=== PATIENT | female | born 2000 | race Caucasian/White ===

== ENCOUNTER 2023-01-13 11:45 | Emergency (ER) | payer MEDICAID, SELFPAY ==
[2023-01-13 11:49] VITALS: BP 113/63; PULSE 51; RESP 16; TEMP 37.1; O2SAT 98; BMI 16.5
--- NOTE | 2023-01-13 12:23 | ED.GENADUL1 ---
HPI - General Adult General Chief complaint: Headache Stated complaint: HEADACHE Time Seen by Provider: 01/13/23 11:56 Source: patient Mode of arrival: Wheelchair History of Present Illness HPI narrative: Patient presents with right sided frontal headache that began early this morning. She has all the symptoms typically associated with her headaches - visual aura, photophobia, blurred vision, nausea, general achiness. She told me that she is from [place] and was evaluated there and diagnosed with hydrocephalus after getting a lot of blood tests and an MRI last spring. She was supposed to see neurosurgery but didnt. She moved to [place] but went to [facility] in [place] the end of October for similar symptoms, had a repeat head CT and was told it hadn't changed from what her tests showed in [place]. Nothing taken at home for the pain. She said that she has a neurologist in [place] and her PCP is in [place] but she has not been prescribed anything to take at home for her headaches. She has not been to [facility] previously for this or since the diagnosis this summer. Related Data Previous Rx's Medication Instructions Recorded nabumetone 750 mg tablet 750 mg PO BID PRN pain/headache 01/13/23 #20 tabs ondansetron 4 mg disintegrating 4 mg PO Q6H PRN headache #20 tabs 01/13/23 tablet Allergies Allergy/AdvReac Type Severity Reaction Status Date / Time No Known Drug Allergies Allergy Verified 01/13/23 11:56 Exam Narrative Exam Narrative: Nurses notes and vital signs reviewed and patient is not hypoxic. afebrile General: Well-appearing and in no apparent distress. Skin: Warm, dry, no pallor noted. No rash. Head: Normocephalic, atraumatic. Neck: Supple, non-tender. no cervical lymphadenopathy. No meningismus. Eye: Pupils are equal, round and EOMI. No scleral icterus. no nystagmus Ears, Nose, Mouth, and Throat: TM are clear, no nasal mucosal hypertrophy. Oral mucosa is moist, no posterior oropharynx erythema, uvula is mid-line Cardiovascular: Regular Rate and Rhythm without murmur, gallop or rub. Respiratory: No accessory muscle use or respiratory distress. Lungs are clear to auscultation, no wheezing, rales or rhonchi Musculoskeletal: normal ROM Neurological: A&O x4. No cranial nerve dysfunction observed. No truncal ataxia. Moves all extremities. Sensation intact. Psychiatric: Cooperative and interactive. Normal mood and affect. Constitutional Vital Signs, click to edit/add: Last Vital Signs Temp 98.8 F 01/13/23 11:49 Pulse 55 L 01/13/23 13:09 Resp 18 01/13/23 13:09 BP 92/55 01/13/23 13:09 Pulse Ox 100 01/13/23 13:09 O2 Del Method Room Air 01/13/23 13:09 Course Vital Signs Vital signs: Vital Signs Temperature 98.8 F 01/13/23 11:49 Pulse Rate 51 L 01/13/23 11:49 Respiratory Rate 16 01/13/23 11:49 Blood Pressure 113/63 01/13/23 11:49 Pulse Oximetry 98 01/13/23 11:49 Oxygen Delivery Method Room Air 01/13/23 11:49 Temperature 98.8 F 01/13/23 11:49 Pulse Rate 55 L 01/13/23 13:09 Respiratory Rate 18 01/13/23 13:09 Blood Pressure 92/55 01/13/23 13:09 Pulse Oximetry 100 01/13/23 13:09 Oxygen Delivery Method Room Air 01/13/23 13:09 Medical Decision Making MDM Narrative Medical decision making narrative: peripheral IV established the patient ordered to receive IV Toradol, IV Benadryl and IV Zofran. I asked and received permission from the patient for us to receive any Emergency Department visits from [facility] and any imaging that was done in [place] or in [place] - no records available in [place]/[facility]. See below for my summarization of the charts from [facility] in [place]. . Medical Records Medical records reviewed: Yes I reviewed the patient's medical records Medical records narrative: CT done 11/25/22 at [facility] shows no hydrocephalus or other abnormality. Imaging Data CT scan - head: Radiologist's impression: Patient Name: HILDA GOMEZ MRN: [id number] date: 2000 Sex: F Assigned Patient Location: ER Current Patient Location: ER Accession/Order Number: [id number] Exam Date: 01/13/2023 12:46 Report Date: 01/13/2023 13:06 At the request of: CAMMIE COFFEY Procedure: CT head/brain wo con EXAM: CT head/brain wo con HISTORY: headache, hydrocephalus COMPARISON: None. TECHNIQUE: Multi slice thin computed tomograms of the brain were obtained, supplemented with Doppler. Radiation reduction technique and algorithms were utilized during the study. FINDINGS: The ventricles are not enlarged, the lateral ventricles are symmetric and the third ventricles in the midline. The sylvian fissures and cortical sulci are unremarkable. There is no evidence of an intracranial hemorrhage, mass lesion or apparent acute infarct above the tentorium. No abnormality is seen in the deep white matter. There is a fluid collection seen in the posterior fossa in the midline posteriorly, presumably due to one or more arachnoid cyst. No focal abnormality is otherwise identified in the cerebellum and visualized brainstem. The paranasal sinuses are clear as visualized. The middle ears are aerated. The mastoid sinuses are clear, and the mastoid sinuses on the right somewhat underdeveloped. There is no apparent acute skull fracture. IMPRESSION: There is no evidence of an intracranial hemorrhage, mass lesion or apparent acute infarct. There is no evidence of hydronephrosis. There is a focal fluid collection the midline in the posterior fossa, indicating one or more arachnoid cysts. The visualized paranasal sinuses are clear. There is no apparent acute skull fracture. Direct comparison with a previous study would be helpful in confirming the chronicity of these findings. Electronically authenticated by: KAMILLA GUSTAFSON Date: 01/13/2023 13:06 Discharge Plan Discharge Chief Complaint: Headache Clinical Impression: Migraine Patient Disposition: Home, Self-Care Time of Disposition Decision: 13:41 Prescriptions / Home Meds: New nabumetone 750 mg tablet 750 mg PO BID PRN (Reason: pain/headache) Qty: 20 0RF ondansetron 4 mg tablet,disintegrating 4 mg PO Q6H PRN (Reason: headache) Qty: 20 0RF Instructions: Migraine Headache (ED) Stand Alone Forms: Portal Instructions
[2023-01-13] MEDS: 0.9 % SODIUM CHLORIDE 1,000 ML 999 ML IV (12:40)
[2023-01-13] MEDS: DIPHENHYDRAMINE HCL 50 MG/ML (1ML) VIAL 25 MG IV (12:42)
[2023-01-13] MEDS: KETOROLAC TROMETHAMINE 30 MG/ML VIAL 15 MG IVP (12:43)
[2023-01-13] MEDS: ONDANSETRON PF 4 MG/2 ML VIAL IV (12:44)
[2023-01-13 13:09] VITALS: BP 92/55; PULSE 55; RESP 18; O2SAT 100
== END 2023-01-13 14:26 | disposition home or self-care (01) ==
PROVIDERS: Emergency Provider Emergency Medicine; Family Provider Family Medicine
DX: G43.909 Migraine, unspecified, not intractable, without status migrainosus (principal)
CPT/HCPCS: 70450; 96374; 96375; 99285

== ENCOUNTER 2023-05-11 14:24 | Emergency (ER) | payer MEDICAID, SELFPAY ==
[2023-05-11 14:32] VITALS: O2SAT 98
[2023-05-11 14:33] VITALS: BP 101/64; PULSE 74; RESP 16; TEMP 37.7; O2SAT 96; O2SAT 98; BMI 17.1
--- NOTE | 2023-05-11 14:46 | ED.URI1 ---
HPI - URI/Sore Throat General Chief Complaint: Upper Respiratory Infection Stated Complaint: SOB Time Seen by Provider: 05/11/23 14:44 Source: patient History of Present Illness HPI Narrative: 23 year old female presents to the ED for sinus congestion/drainage, cough, fever, chills, body aches, sore throat. Onset was 2 days ago. Denies SOB, emesis, diarrhea. Denies abd pain. Related Data Allergies Allergy/AdvReac Type Severity Reaction Status Date / Time No Known Drug Allergies Allergy Verified 01/13/23 11:56 Review of Systems ROS Constitutional Reports: fever and chills Ears, nose, mouth, and throat Reports: throat pain, nasal discharge and nasal congestion; Denies: neck pain, ear pain or ear discharge Cardiovascular Denies: chest pain Respiratory Reports: cough; Denies: shortness of breath Gastrointestinal Denies: abdominal pain, vomiting or diarrhea Integumentary/Breast Denies: rash PFSH PFSH Social History Smoking status: Current every day smoker Exam Constitutional Vital Signs, click to edit/add: Last Vital Signs Temp 99.9 F 05/11/23 14:33 Pulse 74 05/11/23 14:33 Resp 16 05/11/23 14:33 BP 101/64 05/11/23 14:33 Pulse Ox 98 05/11/23 15:30 O2 Del Method Room Air 05/11/23 14:33 Common normals: no apparent distress and oriented x3 General appearance: cooperative HENMT Nose: nasal discharge External ear: external ears normal Mouth: oral and palatal mucosa normal and lip normal; no muffled voice Throat: uvula midline and posterior oropharynx abnormal erythema; no edema and no exudates Eye Common normals: conjunctivae normal and no scleral icterus Neck & C-Spine Common normals: supple Chest Chest: symmetrical chest wall rise Respiratory Common normals: normal respiratory effort, no use of accessory muscles and clear to auscultation bilaterally Effort & inspection: able to speak in complete sentences Cardio Common normals: regular rate and regular rhythm Neuro Common normals: oriented x3 Sensorium/orientation: awake and alert Speech: speech normal Course Vital Signs Vital signs: Vital Signs Pulse Oximetry 98 05/11/23 14:32 Temperature 99.9 F 05/11/23 14:33 Pulse Rate 74 05/11/23 14:33 Respiratory Rate 16 05/11/23 14:33 Blood Pressure 101/64 05/11/23 14:33 Pulse Oximetry 98 05/11/23 15:30 Oxygen Delivery Method Room Air 05/11/23 14:33 MDM - URI/Sore Throat MDM Narrative Medical decision making narrative: Covid-19 was positive. Influenza and strep were negative. Findings were discussed with the patient. Tylenol and/or Motrin as directed for pain, fever. Follow up with pcp for a recheck, further evaluation and treatment. Return precautions were discussed. Differential Diagnosis Differential diagnosis: Likely upper respiratory infection, viral infection, influenza and other (Covid-19, strep pharyngitis) Medical Records Attestation: I reviewed the patient's medical records. Lab Data Attestation: I reviewed the patient's lab results. Labs: Lab Results 05/11/23 Range/Units 14:35 Influenza Type A Ag Negative Influenza Type B Ag Negative SARS-CoV-2 Ag (CV2AG) Positive A (NEGATIVE) Streptococcus Screen Negative Discharge Plan Discharge Stand Alone Forms: Portal Instructions Chief Complaint: Upper Respiratory Infection Clinical Impression: COVID-19 Patient Disposition: Home, Self-Care Time of Disposition Decision: 15:22 Condition: Good Mode of Transportation: Private Vehicle Instructions: COVID-19 (Coronavirus Disease 2019) (ED), How to Recover from COVID-19 at Home (ED), Social Distancing Guidelines for COVID-19 (ED) Additional Instructions: Return to the ER if your condition worsens. Referrals: Physician,Non-Staff, MD [Primary Care Provider] - 1 week Discharge Date/Time: 05/11/23 15:48
[2023-05-11] MEDS: IBUPROFEN 600 MG TABLET PO (14:51)
[2023-05-11] MEDS: DEXAMETHASONE 4 MG TABLET 8 MG PO (14:51)
[2023-05-11] MEDS: ACETAMINOPHEN 500 MG TABLET 1000 MG PO (14:51)
[2023-05-11 15:00] VITALS: O2SAT 97
[2023-05-11 15:13] LABS: Influenza Virus A Antigen Negative; Influenza Virus B Antigen Negative; Internal Control Within Normal Limits
[2023-05-11 15:14] LABS: Internal Control Within Normal Limits; Strep A Antigen Screen Negative
[2023-05-11 15:16] LABS: SARS-CoV-2 Ag POSITIVE (NEGATIVE)
[2023-05-11 15:30] VITALS: O2SAT 98
== END 2023-05-11 15:48 | disposition home or self-care (01) ==
PROVIDERS: Emergency Provider Emergency Medicine; Family Provider Family Medicine
DX: U07.1 COVID-19 (principal); F17.210 Nicotine dependence, cigarettes, uncomplicated
CPT/HCPCS: 87070; 87804; 87811; 87880; 99285